=== PATIENT | male | born 1935 | race Caucasian/White ===

== ENCOUNTER 2018-03-26 11:48 | Emergency (ER) | payer OTHER ==
[2018-03-26 12:01] VITALS: BMI 20.5
--- NOTE | 2018-03-26 12:10 | PDOC ---
History of Present Illness - General Chief Complaint: Syncope/Near Syncope Stated Complaint: SYNCOPE Time Seen by Provider: 03/26/18 12:09 - History of Present Illness Initial Comments: 03/26/18 12:17 Mr. 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 Patient reports he his feeling like his normal self now however is concerned he may have had another stroke. Describes his symptoms earlier today as weakness only that resolved. The patient denies chest pain, shortness of breath, and headache. Denies fever, chills, nausea, vomit, diarrhea and constipation. Denies dysuria, frequency, urgency and hematuria. Past History - Past Medical History Allergies/Adverse Reactions: Allergies Allergy/AdvReac Type Severity Reaction Status Date / Time No Known Allergies Allergy Verified 03/26/18 11:58 Home Medications: Ambulatory Orders Aspirin [ASA -] 81 mg PO DAILY 03/26/18 Cyanocobalamin [Vitamin B12 -] 1,000 mcg PO DAILY 03/26/18 Ergocalciferol (Vitamin D2) [Ergocal] 5,000 unit PO DAILY 03/26/18 Pantoprazole Sodium 40 mg PO DAILY 03/26/18 Prednisolone 1% Ophthalmic [Pred Forte 1% -] 1 ml OU DAILY 03/26/18 COPD: No GI Disorders: Yes (gastritis) Disorders: Yes (enlarged prostate) HTN: Yes - Suicide/Smoking/Psychosocial Hx Smoking History: Never smoked Have you smoked in the past 12 months: No Information on smoking cessation initiated: No Hx Alcohol Use: No Drug/Substance Use Hx: No Review of Systems - Review of Systems Comments:: 03/26/18 12:34 GENERAL/CONSTITUTIONAL: No fever or chills. No weakness. HEAD, EYES, EARS, NOSE AND THROAT: No change in vision. No ear pain or discharge. No sore throat. CARDIOVASCULAR: No chest pain or shortness of breath RESPIRATORY: No cough, wheezing, or hemoptysis. GASTROINTESTINAL: No nausea, vomiting, diarrhea or constipation. GENITOURINARY: No dysuria, frequency, or change in urination. MUSCULOSKELETAL: No joint or muscle swelling or pain. No neck or back pain. SKIN: No rash NEUROLOGIC: +Transient weakness as described; No headache, vertigo, loss of consciousness, or change in strength/sensation. ENDOCRINE: No increased thirst. No abnormal weight change HEMATOLOGIC/LYMPHATIC: No anemia, easy bleeding, or history of blood clots. ALLERGIC/IMMUNOLOGIC: No hives or skin allergy. *Physical Exam - Vital Signs Last Vital Signs Temp Pulse Resp BP Pulse Ox 97.3 F L 63 22 H 133/65 99 03/26/18 11:58 03/26/18 11:58 03/26/18 11:58 03/26/18 11:58 03/26/18 11:58 - Physical Exam Comments: 03/26/18 12:34 GENERAL: Awake, alert, and fully oriented, in no acute distress HEAD: No signs of trauma, normocephalic, atraumatic EYES: PERRLA, EOMI, sclera anicteric, conjunctiva clear ENT: Auricles normal inspection, hearing grossly normal, nares patent, oropharynx clear without exudates. Moist mucosa NECK: Normal ROM, supple, no lymphadenopathy, JVD, or masses LUNGS: No distress, speaks full sentences, clear to auscultation bilaterally HEART: Regular rate and rhythm, normal S1 and S2, no murmurs, rubs or gallops, peripheral pulses normal and equal bilaterally. ABDOMEN: Soft, nontender, normoactive bowel sounds. No guarding, no rebound. No masses EXTREMITIES: Normal inspection, Normal range of motion, no edema. No clubbing or cyanosis. NEUROLOGICAL: Cranial nerves II through XII grossly intact. Normal speech, normal gait (for patient), no focal sensorimotor deficits SKIN: Warm, Dry, normal turgor, no rashes or lesions noted. Moderate Sedation - Procedure Monitoring Vital Signs: Procedure Monitoring Vital Signs Temperature 97.3 F L 03/26/18 11:58 Pulse Rate 63 03/26/18 11:58 Respiratory Rate 22 H 03/26/18 11:58 Blood Pressure 133/65 03/26/18 11:58 O2 Sat by Pulse Oximetry (%) 99 03/26/18 11:58 Heart Score/ECG Review - History History: Moderately suspicious - Electrocardiogram EKG: Non specific repolarization disturbance - Age Age: >/= 65 - Risk Factors Risk Factors Heart Score: Yes Hx Hypertension Based on the list above the patient has:: 1-2 risk factors - Troponin Troponin: </= normal limit - Score Heart Score - Total: 5 ED Treatment Course - LABORATORY CBC & Chemistry Diagram: 03/26/18 13:12 03/26/18 13:12 Medical Decision Making - Medical Decision Making 03/26/18 16:26 Mr. Mishra is an 83 yo male w/ pmh as described who presents for evaluation of symptoms of weakness earlier today (now resolved). Patient well appearing at presentation, EKG significant for non-specific ST changes only. No previous EKG to compare to. Patient initial workup non-contributory. Discussed with cardiology who recommend outpatient follow-up for further evaluation given repeat tropinin negative. 2nd troponin pending at this time. 03/26/18 16:54 2nd troponin negative. Discharging to home with close outpatient follow-up. Laboratory Results - last 24 hr 03/26/18 03/26/18 03/26/18 13:12 13:12 15:44 WBC 5.8 RBC 3.70 L Hgb 12.7 Hct 36.2 MCV 97.9 H MCH 34.5 H MCHC 35.2 RDW 13.9 Plt Count 154 MPV 8.0 Absolute Neuts (auto) 4.3 Neutrophils % 73.7 Lymphocytes % 13.5 Monocytes % 10.4 H Eosinophils % 1.9 Basophils % 0.5 Nucleated RBC % 0 Sodium 134 L Potassium 4.2 Chloride 103 Carbon Dioxide 25 Anion Gap 6 L BUN 18 Creatinine 0.9 Creat Clearance w eGFR > 60 Random Glucose 78 Calcium 8.3 L Total Bilirubin 1.3 H AST 21 ALT 27 Alkaline Phosphatase 83 Creatine Kinase 554 H Creatine Kinase Index 0.1 CK-MB (CK-2) 1.1 Troponin I < 0.02 0.02 Total Protein 6.9 Albumin 3.4 *DC/Admit/Observation/Transfer Diagnosis at time of Disposition: Weakness - Discharge Dispostion Disposition: HOME - Referrals Referrals: Jeffry Ramos MD [Primary Care Provider] - Richar Cardoso MD [Staff Physician] - - Patient Instructions Printed Discharge Instructions: DI for Dizziness-Nonvertigo Additional Instructions: You were evaluated today in the ED for your weakness episode. No concerning findings were found on EKG, labs, or Xray. We do not believe any emergent process is occurring at this time. We have provided cardiology information for follow-up. Please call on Wednesday for an appointment with Dr. Cardoso. Return to ER if any repeat in weakness, fever, chills, or other concerning symptoms. Fuiste evaluado hoy en el servicio de urgencias por tu episodio de debilidad. No se encontraron hallazgos en relacin con el ECG, los laboratorios o la radiografa. No creemos que est ocurriendo ningn proceso emergente en rd momento. Hemos proporcionado informacin de cardiologa para manzanares seguimiento. Por favor llame el para toya nunu con el Dr. Cardoso. Regrese a la janeen de emergencias si alguna repite en la debilidad, fiebre, escalofros u otros sntomas relacionados. Print Language: SWEDISH - Post Discharge Activity
--- NOTE | 2018-03-26 12:37 | PDOC ---
Attending Attestation - Resident Resident Name: Winston Eller - ED Attending Attestation I have performed the following: I have examined & evaluated the patient, The case was reviewed & discussed with the resident, I agree w/resident's findings & plan, Exceptions are as noted - Physicial Exam PE: GENERAL: Awake, alert, and fully oriented, in no acute distress HEAD: No signs of trauma EYES: PERRLA, EOMI, sclera anicteric, conjunctiva clear ENT: Auricles normal inspection, hearing grossly normal, nares patent, oropharynx clear without exudates. Moist mucosa NECK: Normal ROM, supple, no lymphadenopathy, JVD, or masses LUNGS: Breath sounds equal, clear to auscultation bilaterally. No wheezes, and no crackles HEART: Regular rate and rhythm, normal S1 and S2, no murmurs, rubs or gallops ABDOMEN: Soft, nontender, normoactive bowel sounds. No guarding, no rebound. No masses EXTREMITIES: Normal range of motion, no edema. No clubbing or cyanosis. No cords, erythema, or tenderness NEUROLOGICAL: Cranial nerves II through XII grossly intact. Normal speech, normal gait. Motor and sensation intact SKIN: Warm, Dry, normal turgor, no rashes or lesions noted. - Medical Decision Making Pt with near syncope at synagogue. Will obtain cardiac workup. No neuro deficits, CTH not indicated. <Jennie Kaye - Last Filed: 03/26/18 13:33> - HPI HPI: 03/26/18 13:40 The patient is an 83 year old male with no PMH of GERD, HTN, BPH, prior CVA who presents to the ER with a dizzy episode at approximately 10:30AM today. He describes the dizziness as a weakness lasting 5 minutes that resolved on its own after sitting down. Patient denies any symptoms here in the ER. Denies diaphoresis, cp, sob, FERNANDES, fever chills, N/V/D/C, or urinary symptoms. <Maria Elena Bhatt - Last Filed: 03/26/18 13:44>
[2018-03-26] MEDS ORDERED: ASPIRIN 81 MG CHEWABLE TABLETS PO ONE (12:40)
[2018-03-26 13:34] LABS: BASO % 0.5 % (0-2.0); EOS % 1.9 % (0-4.5); HEMATOCRIT 36.2 % (35.4-49); HEMOGLOBIN 12.7 GM/dL (11.7-16.9); LYMPH % 13.5 % (8-40); MCH 34.5 pg (25.7-33.7); MCHC 35.2 g/dl (32.0-35.9); MEAN CELL VOLUME 97.9 fl (80-96); MONO % 10.4 % (3.8-10.2); NEUT % 73.7 % (42.8-82.8); PLATELET COUNT 154 K/MM3 (134-434); RDW 13.9 % (11.9-15.9); WHITE BLOOD COUNT 5.8 K/mm3 (4.0-10.0)
[2018-03-26] MEDS ORDERED: ASPIRIN 81 MG CHEWABLE TABLETS ONE (13:53)
[2018-03-26 13:55] LABS: ALBUMIN 3.4 g/dl (3.4-5.0); ALK PHOS 83 U/L (45-117); ANION GAP 6 MMOL/L (8-16); BILIRUBIN,TOTAL 1.3 mg/dL (0.2-1); BLOOD UREA NITROGEN 18 mg/dL (7-18); CALCIUM 8.3 mg/dL (8.5-10.1); CHLORIDE 103 mmol/L (98-107); CO2 25 mmol/L (21-32); CREATININE 0.9 mg/dL (0.55-1.3); GLUCOSE,RANDOM 78 mg/dL (74-106); POTASSIUM 4.2 mmol/L (3.5-5.1); SGOT/AST 21 U/L (15-37); SGPT/ALT 27 U/L (13-61); SODIUM 134 mmol/L (136-145); TOT PROT 6.9 g/dl (6.4-8.2)
--- NOTE | 2018-03-26 15:29 | EKG ---
Test Reason : Blood Pressure : / mmHG Vent. Rate : 057 BPM Atrial Rate : 057 BPM P-R Int : 168 ms QRS Dur : 096 ms QT Int : 410 ms P-R-T Axes : 056 046 058 degrees QTc Int : 399 ms SINUS BRADYCARDIA NONSPECIFIC ST ABNORMALITY ABNORMAL ECG NO PREVIOUS ECGS AVAILABLE Confirmed by Richar Cardoso MD ([id number]) on 03/26/2018 3:29:01 PM Referred By: Confirmed By:Richar Cardoso MD
[2018-03-26 17:15] VITALS: BP 139/76; PULSE 65; TEMP 98.1
== END 2018-03-26 17:20 | disposition home or self-care (01) ==
LOC: JER 11:48
DX: R53.1 Weakness (principal); R42 Dizziness and giddiness; I10 Essential (primary) hypertension; K21.9 Gastro-esophageal reflux disease without esophagitis; N40.0 Benign prostatic hyperplasia without lower urinary tract symptoms; I69.844 Monoplegia of lower limb following other cerebrovascular disease affecting left non-dominant side
CPT/HCPCS: 36415; 71045-TC-FY; 80053; 82550; 82553; 84484; 85025; 93005; 93010; 99285-25

== ENCOUNTER 2018-08-02 12:07 | Inpatient (IN) | payer OTHER ==
[2018-08-02 12:30] VITALS: BMI 24.7
--- NOTE | 2018-08-02 13:16 | PDOC ---
History of Present Illness - General Stated Complaint: FALL Time Seen by Provider: 08/02/18 12:46 History Source: Patient, Spouse ( present at bedside.), Bolt Sorter Used ( Pt is Rwandan speaking only. [employer] calculus teacher utilized.), Old Records Exam Limitations: Language Barrier - History of Present Illness Initial Comments: HPI: 83 y/o male presenting to [facility] ER complaining of facial pain and bleeding after a syncopal episode. Pt felt light headed and dizzy while socializing at his club this morning. Stepped outside and fell to the ground. Struck his face. Believes he passed out for approx. 2 min. Was not able to stand up afterward. Sensation had resolved by the time of interview. Endorses feeling lightheaded and weak for the past week. Was started on Mirapex last week. Further endorses dysuria. Was diagnosed with a UTI and started on Levaquin in clinic. Takes ASA daily. PCP: Dr. Serrano Urologist: Dr. Rivera Social Hx: - EtOH: Denies - Tobacco: Denies Medical Hx: - Gastritis - Prostate Enlargement - S/p unknown prostate surgery 15 years ago Pt unable to recall names of current medications. Obtained from pharmacy. Includes Mirapex, Rimeron, Zoloft, Atenalol, Flomax, and Amitiza. Review of Systems: In addition to that documented in the HPI above, the additional ROS was obtained : Constitutional: Denies fevers or chills Head: Denies vision changes ENMT: Denies sore throat CV: Denies chest pain Resp: Denies SOB GI: Endorses nausea. Denies vomiting or diarrhea : Endorses painful urination MSK: Per HPI Skin: Denies new rashes Neuro: Denies new numbness or tingling or weakness Endocrine: Denies polyuria Heme: Denies bleeding or bruising Physical Examination: Constitutional: Elderly adult male in no acute distress or obvious discomfort. Found semi-fowlers on hospital bed. Alert and oriented x4. Answered all questions appropriately and completely. Speech was non-labored, non-pressured. Head: Normocephalic. Abrasions to overlying left methodist, zygoma, and left side of upper lip. Trace oozing blood. No raccoon eyes or Battles sign. No tenderness to maxillary or frontal sinuses. No obvious bony deformities. Eyes: Pupils 3mm and PERRL bilaterally. EOMI. No nystagmus. Sclerae white. Conjunctiva moist and not injected. Ears: Hearing grossly intact. No discharge. Nose: No nasal discharge. Throat: Oral cavity and pharynx normal. No inflammation, swelling, exudate, or lesions. No intraoral trauma. Neck: Supple, trachea is midline. No c-spine tenderness. Able to rotate neck to R and L >45 degrees without difficulty. Cardiovascular / Chest: Borderline bradycardic rate with regular rhythm. No murmur, rubs, clicks, or gallops. Peripheral pulses: radial pulses full. No anterior chest wall tenderness to palpation. No pretibial edema. Respiratory: Breathing unlabored. Equal chest rise and fall. Clear to auscultation bilaterally. No stridor, no wheezing, no rhonchi. Gastrointestinal: abdomen is soft, non-tender, non-distended. No overlying skin lesions or obvious signs of trauma. Neuro: Alert and oriented. Moving all four extremities spontaneously. No focal deficits. Cranial nerves intact. Sensation to all four extremities intact. Upper and lower extremities: proximal and distal strength 5/5. Bottom Pounder [employer] Shoes strength 5/ 5 - equal and symmetric. Plantar flexion and dorsiflexion 5/5. No nuchal rigidity. Intact heel to kinsey. Skin: Warm and dry. No further signs of trauma aside from wounds to face as described above. Psych: Affect: appropriate. Mood: normal. MDM: *Reviewed vital signs, nursing notes, and prior visit documentation (if available). 83 y/o male s/p syncopal episode in setting of week long generalized weakness. Started Levaquin and Mirapex recently. Denies symptoms on arrival. Afebrile. Vitals remarkable for bradycardia that improved without intervention. Suspect secondary to home beta case therapy. No hypotension. Physical exam as described above. Suspect likely orthostatic hypotension secondary to starting Mirapex. D/D includes but not limited to ACS, arrhythmia, hypothyroidism (low suspicion), PE (very low suspicion without respiratory complaints), CVA, or seizure. EKG revealed possible ST elevation in V2, which was present on previous EKG from Mar 2018. Interval change of flipped T-wave in aVL. Will discuss with cardiology admissions clinician. 14:14 Cased discussed in person with Dr. Dozier. Not likely to be acute RI. Will continue with current management. Awaiting troponin. Repeat EKG unchanged from initial. Repeat troponin at 1.5 hours remain below 0.02. Low suspicion for ACS. CBC unremarkable for anemia or leukocytosis. CMP unremarkable for electrolyte derangement. UA unremarkable for pyuria, nitrites, or leukocyte esterase. Result possibly obscured by current abx therapy. Will defer further management to inpatient team. Head and c-spine CTs unremarkable for acute pathology. Negative orthostatic vital signs. Will admit pt for further syncope workup. 15:10 Telephone consultation with LC Cazares. Verbally appraised of the pts HPI, ED course, and current plan of management. Will admit the pt for attending Dr. Serrano. Javier Tipton M.D., PGY1 Emergency Medicine Resident Past History - Past Medical History Allergies/Adverse Reactions: Allergies Allergy/AdvReac Type Severity Reaction Status Date / Time No Known Allergies Allergy Verified 04/26/18 09:48 Home Medications: Ambulatory Orders Aspirin [ASA -] 81 mg PO DAILY 03/26/18 Atenolol [Tenormin -] 100 mg PO DAILY 08/02/18 Lubiprostone [Amitiza] 8 mcg PO BID 08/02/18 Mirtazapine [Remeron -] 7.5 mg PO HS 08/02/18 Pramipexole Dihydrochloride [Mirapex -] 0.125 mg PO HS 08/02/18 Sertraline HCl [Zoloft] 25 mg PO DAILY 08/02/18 Tamsulosin HCl [Flomax] 0.4 mg PO DAILY 08/02/18 levoFLOXacin [Levaquin -] 250 mg PO BID 08/02/18 CVA: Yes (40 yrs ago) COPD: No GI Disorders: Yes (gastritis) Disorders: Yes (enlarged prostate) HTN: Yes - Suicide/Smoking/Psychosocial Hx Smoking History: Never smoked Have you smoked in the past 12 months: No Information on smoking cessation initiated: No Hx Alcohol Use: No Drug/Substance Use Hx: No *Physical Exam - Vital Signs Last Vital Signs Temp Pulse Resp BP Pulse Ox 98.2 F 49 L 18 120/42 L 98 08/02/18 12:28 08/02/18 12:28 08/02/18 12:28 08/02/18 12:28 08/02/18 12:28 Vital Signs - Vital Signs #1 Blood Pressure: 144/67 MAP: 92 BP Location: Right Arm Blood Pressure Position: Sitting Pulse Rate: 58 Respiratory Rate: 18 O2 Sat by Pulse Oximetry (%): 99 Oxygen Delivery Method: Room Air #2 Blood Pressure: 140/76 MAP: 97 BP Location: Left Arm Blood Pressure Position: Sitting Pulse Rate: 62 Respiratory Rate: 20 O2 Sat by Pulse Oximetry (%): 97 Oxygen Delivery Method: Room Air ED Treatment Course - LABORATORY CBC & Chemistry Diagram: 08/02/18 13:16 08/02/18 13:16 *DC/Admit/Observation/Transfer Diagnosis at time of Disposition: Syncope and collapse, Fall in elderly patient Facial abrasion Qualifiers: Encounter type: initial encounter Qualified Code(s): S00.81XA - Abrasion of other part of head, initial encounter - Discharge Dispostion Condition at time of disposition: Stable Decision to Admit order: Yes - Referrals - Patient Instructions - Post Discharge Activity
[2018-08-02] MEDS ORDERED: LACTATED RINGERS SOLUTION 1000 ML INFUS.BAG IV ONE (13:34)
[2018-08-02 13:35] LABS: BASO % 0.2 % (0-2.0); EOS % 0.8 % (0-4.5); HEMATOCRIT 36.3 % (35.4-49); HEMOGLOBIN 12.5 GM/dL (11.7-16.9); LYMPH % 11.6 % (8-40); MCH 32.9 pg (25.7-33.7); MCHC 34.6 g/dl (32.0-35.9); MEAN CELL VOLUME 95.2 fl (80-96); MEAN PLT VOLUME 6.7 fl (7.5-11.1); MONO % 4.8 % (3.8-10.2); NEUT % 82.6 % (42.8-82.8); PLATELET COUNT 336 K/MM3 (134-434); RBC 3.81 M/mm3 (4.00-5.60); RDW 13.4 % (11.9-15.9); WHITE BLOOD COUNT 9.9 K/mm3 (4.0-10.0)
[2018-08-02] MEDS ORDERED: ASPIRIN 81 MG CHEWABLE TABLETS PO ONE (13:42)
[2018-08-02 13:43] LABS: EPI CELLS 1.7 /HPF (0-5/HPF); HYALINE CASTS 37 /lpf (0-8); PH,URINE 5.5 (5.0-8.0); URINE APPEARANCE CLOUDY; URINE BACTERIA 8.6 /hpf (NEGATIVE); URINE BILIRUBIN NEGATIVE (NEGATIVE); URINE COLOR YELLOW; URINE GLUCOSE (UA) NEGATIVE (NEGATIVE); URINE KETONE TRACE (NEGATIVE); URINE LEUK ESTERASE NEGATIVE (NEGATIVE); URINE NITRITE NEGATIVE (NEGATIVE); URINE PROTEIN 1+ (NEGATIVE); URINE WBC 1 /hpf (0-5)
[2018-08-02] MEDS ORDERED: ASPIRIN 325 MG TABLET ONE (14:16)
[2018-08-02 14:27] LABS: ALBUMIN 3.2 g/dl (3.4-5.0); ALK PHOS 112 U/L (45-117); ANION GAP 6 MMOL/L (8-16); BILIRUBIN,TOTAL 0.7 mg/dL (0.2-1); BLOOD UREA NITROGEN 12.5 mg/dL (7-18); CALCIUM 8.6 mg/dL (8.5-10.1); CHLORIDE 98 mmol/L (98-107); CO2 28 mmol/L (21-32); CREATININE 0.9 mg/dL (0.55-1.3); GLUCOSE,RANDOM 96 mg/dL (74-106); POTASSIUM 4.5 mmol/L (3.5-5.1); SGOT/AST 27 U/L (15-37); SGPT/ALT 42 U/L (13-61); SODIUM 132 mmol/L (136-145); TOT PROT 7.5 g/dl (6.4-8.2)
--- NOTE | 2018-08-02 15:02 | PDOC ---
Documentation entered by Lula Mera SCRIBE, acting as scribe for Ivis Wiggins MD. Ivis Wiggins MD: This documentation has been prepared by the Samaria carroll Brenda, SCRIBE, under my direction and personally reviewed by me in its entirety. I confirm that the documentation accurately reflects all work, treatment, procedures, and medical decision making performed by me. Attending Attestation - Resident Resident Name: Javier Tipton - [facility] HPI: 08/02/18 14:28 The patient is an 83 year old male, with a significant PMH of GERD, HTN, BPH, CVA (30-40 years ago with resultant limp only (L leg weakness), CVA and prostate enlargement who presents to the emergency department with facial pain and bleeding s/p fall this morning. The patient reports being at a club, where he usually attends, and started to feel dizzy and light-headed, at which point he fell off of a chair and hit his face. The patient believes he may have syncopize for about 2 minutes, and reports feeling very weak post incident, and wasnt able to stand. The patient notes feeling lightheaded for the past week. The Patient also states seeing his PCP last week, where he was diagnosed with a UTI and was prescribed Levaquin, however he notes still having dysuria. He also states starting Mirapex last week. The patient was only anguillan-speaking. The patient denies chest pain, shortness of breath, headache and dizziness. Denies fever, chills, nausea, vomiting, diarrhea and constipation. Denies frequency, urgency and hematuria. The patient was anguillan-speaking only. Allergies: NKA Past surgical history: unknown prostate surgery done 15 years ago. Social history: No tobacco use. No alcohol use. PMH: The reports that patient was diagnosed with a stroke years ago, in [place]. Urologist:Dr. Rivera PCP: Dr. Jacey Serrano - Physicial Exam PE: 08/02/18 14:28 GENERAL: Awake, alert, and fully oriented, in no acute distress HEAD: EYES: PERRLA, EOMI, sclera anicteric, conjunctiva clear ENT: Auricles normal inspection, hearing grossly normal, nares patent, oropharynx clear without exudates. Moist mucosa NECK: Normal ROM, supple, no lymphadenopathy, JVD, or masses LUNGS: Breath sounds equal, clear to auscultation bilaterally. No wheezes, and no crackles HEART: Regular rate and rhythm, normal S1 and S2, no murmurs, rubs or gallops ABDOMEN: Soft, nontender, normoactive bowel sounds. No guarding, no rebound. No masses EXTREMITIES: Normal range of motion, no edema. No clubbing or cyanosis. No cords, erythema, or tenderness NEUROLOGICAL: Cranial nerves II through XII grossly intact. Normal speech, normal gait SKIN: + Facial abrasions on left side. Warm, Dry, normal turgor, no rashes noted. - Medical Decision Making 08/02/18 14:56 Pt presents to the ED complaining of syncope today with fall. Patient is a poor historian, but does report some prodromal dizziness. Ct head and C spine checked to rule out intracranial bleed or cervical spine fx and are negative. Denies chest complaints--EKG shows no arrythmia or evidence of acute ischemia. Troponin is negative. GIven his age and risk factors, will admit to observation for syncope. 08/02/18 14:57
[2018-08-02 15:27] LABS: URINE RBC 0.4 /hpf (0-4)
[2018-08-02 15:28] LABS: URINE CRYSTALS CALCIUM OXALATE /hpf
--- NOTE | 2018-08-02 20:01 | HP ---
Admitting History and Physical - Primary Care Physician PCP: Fer Serrano - Admission Chief Complaint: Syncopal Episode History of Present Illness: Patient is an 83 y/o male with past medical history of Gastritis, Prostate Enlargement. Patient presented to ER after having syncopal episode today. Patient states prior to syncopal episode he was having intermittent L sided headaches with visual disturbances. Today while in his program he felt lightheaded with nausea and then experienced a syncopal episode. Patient did hit his head. Patient takes Aspirin daily. History Source: Patient Limitations to Obtaining History: No Limitations - Past Medical History Cardiovascular: Yes: HTN Renal/: Yes: BPH - Smoking History Smoking history: Never smoked Have you smoked in the past 12 months: No - Alcohol/Substance Use Hx Alcohol Use: No - Social History Usual Living Arrangement: Yes: With Spouse ADL: Independent History of Recent Travel: No Home Medications - Allergies Allergies/Adverse Reactions: Allergies Allergy/AdvReac Type Severity Reaction Status Date / Time No Known Allergies Allergy Verified 04/26/18 09:48 - Home Medications Home Medications: Ambulatory Orders Aspirin [ASA -] 81 mg PO DAILY 03/26/18 Lubiprostone [Amitiza] 8 mcg PO BID 08/02/18 Mirtazapine [Remeron -] 7.5 mg PO HS 08/02/18 Sertraline HCl [Zoloft] 25 mg PO DAILY 08/02/18 Tamsulosin HCl [Flomax] 0.4 mg PO DAILY 08/02/18 Amlodipine Besylate [Norvasc -] 5 mg PO DAILY #30 tablet 08/06/18 Review of Systems - Review of Systems Constitutional: reports: Weakness Eyes: reports: Blurred Vision HENT: reports: No Symptoms Neck: reports: No Symptoms Cardiovascular: reports: No Symptoms Respiratory: reports: No Symptoms Gastrointestinal: reports: No Symptoms Genitourinary: reports: Dysuria Breasts: reports: No Symptoms Reported Musculoskeletal: reports: No Symptoms Integumentary: reports: No Symptoms Neurological: reports: Syncope Endocrine: reports: No Symptoms Hematology/Lymphatic: reports: No Symptoms Psychiatric: reports: No Symptoms Physical Examination Vital Signs: Vital Signs Temperature 98.1 F 08/02/18 17:16 Pulse Rate 51 L 08/02/18 17:16 Respiratory Rate 16 08/02/18 17:16 Blood Pressure 149/57 L 08/02/18 17:16 O2 Sat by Pulse Oximetry (%) 99 08/02/18 17:16 Constitutional: Yes: No Distress, Calm Eyes: Yes: Conjunctiva Clear HENT: Yes: Normocephalic Neck: Yes: Supple Cardiovascular: Yes: Bradycardia Respiratory: Yes: Regular, CTA Bilaterally Gastrointestinal: Yes: Normal Bowel Sounds, Soft Musculoskeletal: Yes: Muscle Weakness Extremities: Yes: WNL Edema: No Integumentary: Yes: Other (abrasion to L forehead, nasal bridge, L side of face) Neurological: Yes: Alert, Oriented Psychiatric: Yes: Alert, Oriented Labs: CBC, BMP 08/02/18 13:16 08/02/18 13:16 Imaging - Results Cat Scan: Report Reviewed Problem List - Problems (1) Facial abrasion Code(s): S00.81XA - ABRASION OF OTHER PART OF HEAD, INITIAL ENCOUNTER Qualifiers: Encounter type: initial encounter Qualified Code(s): S00.81XA - Abrasion of other part of head, initial encounter (2) Fall in elderly patient Assessment/Plan: -fall precaution -PT Code(s): R29.6 - REPEATED FALLS (3) Syncope and collapse Assessment/Plan: -Neurology and Cardiology consult -fall precaution -neuro checks -tele monitor -Head CT scan shows no evidence of acute intracranial hemorrhage, edema, midline shift, mass effect, or skull fracture, moderate supratentorial chronic white matter microangiopathic ischemic changes, gliosis -Carotid US Code(s): R55 - SYNCOPE AND COLLAPSE (4) Weakness Assessment/Plan: -fall precaution -PT Code(s): R53.1 - WEAKNESS (5) Bradycardia Assessment/Plan: -Cardiology consult -tele monitor -hold Atenolol if HR <60bpm Code(s): R00.1 - BRADYCARDIA, UNSPECIFIED (6) UTI (urinary tract infection) Assessment/Plan: -Levaquin -UC pending Code(s): N39.0 - URINARY TRACT INFECTION, SITE NOT SPECIFIED Assessment/Plan see problem list dvt ppx
[2018-08-02] MEDS ORDERED: PATIENT'S OWN MEDICATION (NON-FORMULARY) (Lubiprostone [Amitiza] 8 MCG) PO SCH (22:00)
[2018-08-03] MEDS: MIRTAZAPINE 15 MG TABLET (FP) PO SCH ×2 (00:04→21:33)
[2018-08-03] MEDS: PRAMIPEXOLE DIHYDROCHLORIDE 0.125 MG TABLET PO SCH ×2 (00:04→21:33)
[2018-08-03 06:11] LABS: BASO % 0.6 % (0-2.0); HEMATOCRIT 35.6 % (35.4-49); HEMOGLOBIN 12.5 GM/dL (11.7-16.9); LYMPH % 33.3 % (8-40); MCH 32.8 pg (25.7-33.7); MCHC 35.1 g/dl (32.0-35.9); MEAN CELL VOLUME 93.5 fl (80-96); MEAN PLT VOLUME 7.2 fl (7.5-11.1); MONO % 8.3 % (3.8-10.2); NEUT % 55.8 % (42.8-82.8); PLATELET COUNT 318 K/MM3 (134-434); RBC 3.81 M/mm3 (4.00-5.60); RDW 13.5 % (11.9-15.9); WHITE BLOOD COUNT 4.9 K/mm3 (4.0-10.0)
[2018-08-03 06:49] LABS: ALBUMIN 2.9 g/dl (3.4-5.0); BILIRUBIN,TOTAL 0.7 mg/dL (0.2-1); BLOOD UREA NITROGEN 9.9 mg/dL (7-18); CALCIUM 8.5 mg/dL (8.5-10.1); CREATININE 0.7 mg/dL (0.55-1.3); MAGNESIUM 2.4 mg/dL (1.8-2.4); PHOSPHOROUS 3.1 mg/dL (2.5-4.9); POTASSIUM 3.9 mmol/L (3.5-5.1); TOT PROT 6.9 g/dl (6.4-8.2)
--- NOTE | 2018-08-03 08:17 | EKG ---
Test Reason : Blood Pressure : / mmHG Vent. Rate : 053 BPM Atrial Rate : 053 BPM P-R Int : 180 ms QRS Dur : 098 ms QT Int : 422 ms P-R-T Axes : 042 058 073 degrees QTc Int : 395 ms POOR DATA QUALITY, INTERPRETATION MAY BE ADVERSELY AFFECTED SINUS BRADYCARDIA MINIMAL VOLTAGE CRITERIA FOR LVH, MAY BE NORMAL VARIANT BORDERLINE ECG WHEN COMPARED WITH ECG OF 02-AUG-2018 12:27, NO SIGNIFICANT CHANGE WAS FOUND Confirmed by JOSEF HOLM MD ([id number]) on 08/03/2018 8:17:27 AM Referred By: Confirmed By:JOSEF HOLM MD
[2018-08-03] MEDS ORDERED: PNEUMOC 13-VAL CONJ-DIP CRM/PF 0.5 ML DISP.SYRIN IM ONE (10:00)
[2018-08-03] MEDS ORDERED: ATENOLOL 50 MG TABLET (FP) PO SCH ×2 (10:00)
[2018-08-03] MEDS: ASPIRIN 81 MG CHEWABLE TABLETS PO SCH (11:10)
[2018-08-03] MEDS: SERTRALINE HCL 25 MG TABLET (FP) PO SCH (11:10)
[2018-08-03] MEDS: TAMSULOSIN HCL 0.4 MG CAP PO SCH (11:10)
--- NOTE | 2018-08-03 11:19 | EKG ---
Test Reason : Blood Pressure : / mmHG Vent. Rate : 049 BPM Atrial Rate : 049 BPM P-R Int : 178 ms QRS Dur : 092 ms QT Int : 432 ms P-R-T Axes : 071 063 078 degrees QTc Int : 390 ms SINUS BRADYCARDIA MINIMAL VOLTAGE CRITERIA FOR LVH, MAY BE NORMAL VARIANT MARKED ST ABNORMALITY, POSSIBLE ANTEROSEPTAL SUBENDOCARDIAL INJURY Confirmed by ALTA DAUGHERTY, JOSEF ([id number]) on 08/03/2018 11:19:19 AM Referred By: Confirmed By:JOSEF HOLM MD
--- NOTE | 2018-08-03 13:03 | CON.CARD ---
Consult Consult Specialty:: cardiology Referred by:: Zach Reason for Consultation:: Syncope - History of Present Illness Chief Complaint: Syncope History of Present Illness: The patient is an 83-year-old man, with a history of hypertension, stroke, BPH, now admitted with syncope. The patient claims that he was sitting in the chair when he suddenly became dizzy and fell off the chair. He woke up a few seconds later. He has no recollections of the event. Next The patient stated that he has been experiencing dizziness and lightheadedness for the past 2 weeks. The symptoms are new to him. The patient denies chest pains and shortness of breath while walking. No palpitations. He is currently comfortable and symptom free. - History Source History Provided By: Patient, Medical Record Limitations to Obtaining History: No Limitations - Past Medical History Cardio/Vascular: Yes: HTN Renal/: Yes: BPH - Past Surgical History Past Surgical History: Yes: None - Alcohol/Substance Use Hx Alcohol Use: No - Smoking History Smoking history: Never smoked Have you smoked in the past 12 months: No - Social History ADL: Independent History of Recent Travel: No Home Medications - Allergies Allergies/Adverse Reactions: Allergies Allergy/AdvReac Type Severity Reaction Status Date / Time No Known Allergies Allergy Verified 04/26/18 09:48 - Home Medications Home Medications: Ambulatory Orders Aspirin [ASA -] 81 mg PO DAILY 03/26/18 Atenolol [Tenormin -] 100 mg PO DAILY 08/02/18 Lubiprostone [Amitiza] 8 mcg PO BID 08/02/18 Mirtazapine [Remeron -] 7.5 mg PO HS 08/02/18 Pramipexole Dihydrochloride [Mirapex -] 0.125 mg PO HS 08/02/18 Sertraline HCl [Zoloft] 25 mg PO DAILY 08/02/18 Tamsulosin HCl [Flomax] 0.4 mg PO DAILY 08/02/18 levoFLOXacin [Levaquin -] 250 mg PO BID 08/02/18 Review of Systems - Review of Systems Constitutional: reports: No Symptoms Eyes: reports: No Symptoms HENT: reports: No Symptoms Neck: reports: No Symptoms Cardiovascular: reports: No Symptoms Respiratory: reports: No Symptoms Gastrointestinal: reports: No Symptoms Genitourinary: reports: No Symptoms Breasts: reports: No Symptoms Reported Musculoskeletal: reports: No Symptoms Integumentary: reports: No Symptoms Neurological: reports: Syncope Endocrine: reports: No Symptoms Hematology/Lymphatic: reports: No Symptoms Psychiatric: reports: No Symptoms Vital Signs: Vital Signs Temperature 97.7 F 08/03/18 06:00 Pulse Rate 45 L 08/03/18 06:00 Respiratory Rate 16 08/03/18 06:00 Blood Pressure 113/61 08/03/18 06:00 O2 Sat by Pulse Oximetry (%) 99 08/02/18 22:20 Constitutional: Yes: Well Nourished, No Distress, Calm Eyes: Yes: WNL, Conjunctiva Clear, EOM Intact HENT: Yes: WNL, Atraumatic, Normocephalic Neck: Yes: WNL, Supple, Trachea Midline Respiratory: Yes: WNL, Regular, CTA Bilaterally Gastrointestinal: Yes: WNL, Normal Bowel Sounds, Soft Renal/: Yes: WNL Cardiovascular: Yes: WNL, Regular Rate and Rhythm JVD: No Carotid Bruit: No PMI: Non-Displaced Heart Sounds: Yes: S1, S2 Murmur: Yes: Systolic Murmur, Grade 2 Extremities: Yes: WNL Edema: No Peripheral Pulses WNL: Yes Integumentary: Yes: WNL Neurological: Yes: WNL, Alert, Oriented ...Motor Strength: WNL Psychiatric: Yes: WNL - Other Data Labs, Other Data: CBC, BMP 08/03/18 05:05 08/03/18 05:05 Troponin, BNP 08/02/18 08/02/18 08/03/18 13:16 15:30 05:05 Troponin I < 0.02 < 0.02 0.02 Troponin, BNP 08/02/18 08/02/18 08/03/18 13:16 15:30 05:05 Troponin I < 0.02 < 0.02 0.02 Assessment/Plan The patient is an 83-year-old man, with a history of hypertension, stroke, BPH, now admitted with syncope. The patient claims that he was sitting in the chair when he suddenly became dizzy and fell off the chair. He woke up a few seconds later. He has no recollections of the event. Next The patient stated that he has been experiencing dizziness and lightheadedness for the past 2 weeks. The symptoms are new to him. The patient denies chest pains and shortness of breath while walking. No palpitations. He is currently comfortable and symptom free. There is no evidence of ischemia nor acute coronary syndrome. No CHF. The patient is in sinus bradycardia. No clinically important arrhythmias documented at this point. Would stop atenolol. Start Norvasc 5 mg daily. Would monitor for further 24 hours. Please arrange for an echocardiogram. The patient is stable. No need for further cardiac workup at this point.
--- NOTE | 2018-08-03 14:09 | PN ---
Progress Note, Physician Chief Complaint: Syncope Bradycardia History of Present Illness: Previous notes and events reviewed awake and alert NAD denies dizziness, chest pain, or SOB - Current Medication List Current Medications: Active Medications Amlodipine Besylate (Norvasc -) 5 mg PO DAILY [facility] Aspirin (Asa -) 81 mg PO DAILY [facility] Last Admin: 08/03/18 11:10 Dose: 81 mg Levofloxacin (Levaquin -) 250 mg PO DAILY@0600 [facility] Last Admin: 08/03/18 08:10 Dose: 250 mg Mirtazapine (Remeron -) 7.5 mg PO [facility] Last Admin: 08/03/18 00:04 Dose: 7.5 mg Non-Formulary Medication (Lubiprostone [Amitiza]) 8 mcg PO BID [facility] Pramipexole Dihydrochloride (Mirapex -) 0.125 mg PO [facility] Last Admin: 08/03/18 00:04 Dose: 0.125 mg Sertraline HCl (Zoloft -) 25 mg PO DAILY [facility] Last Admin: 08/03/18 11:10 Dose: 25 mg Tamsulosin HCl (Flomax -) 0.4 mg PO DAILY@0830 [facility] Last Admin: 08/03/18 11:10 Dose: 0.4 mg - Objective Vital Signs: Vital Signs Temperature 97.7 F 08/03/18 06:00 Pulse Rate 45 L 08/03/18 06:00 Respiratory Rate 16 08/03/18 06:00 Blood Pressure 113/61 08/03/18 06:00 O2 Sat by Pulse Oximetry (%) 99 08/02/18 22:20 Constitutional: Yes: No Distress, Calm Eyes: Yes: Conjunctiva Clear HENT: Yes: Normocephalic Cardiovascular: Yes: Bradycardia Respiratory: Yes: Regular, Diminished Gastrointestinal: Yes: Normal Bowel Sounds, Soft Musculoskeletal: Yes: Muscle Weakness Extremities: Yes: WNL Edema: No Neurological: Yes: Alert, Oriented Psychiatric: Yes: Alert, Oriented Labs: CBC, BMP 08/03/18 05:05 08/03/18 05:05 Microbiology 08/02/18 13:16 Urine - Urine Clean Catch Urine Culture - Final NO GROWTH OBTAINED - ....Imaging X-ray: Report Reviewed Problem List - Problems (1) Facial abrasion Code(s): S00.81XA - ABRASION OF OTHER PART OF HEAD, INITIAL ENCOUNTER Qualifiers: Encounter type: initial encounter Qualified Code(s): S00.81XA - Abrasion of other part of head, initial encounter (2) Fall in elderly patient Assessment/Plan: -fall precaution -PT Code(s): R29.6 - REPEATED FALLS (3) Syncope and collapse Assessment/Plan: -Neurology and Cardiology consult -fall precaution -neuro checks -tele monitor -Head CT scan shows no evidence of acute intracranial hemorrhage, edema, midline shift, mass effect, or skull fracture, moderate supratentorial chronic white matter microangiopathic ischemic changes, gliosis -Carotid US shows small plaques at the common carotid bifurcation and bulb, bilaterally without evidence of hemodynamically significant stenosis, moderate sized plaques at the origin right external carotid artery -Echocardiogram Code(s): R55 - SYNCOPE AND COLLAPSE (4) Weakness Assessment/Plan: -fall precaution -PT Code(s): R53.1 - WEAKNESS (5) Bradycardia Assessment/Plan: -Cardiology consult -tele monitor Code(s): R00.1 - BRADYCARDIA, UNSPECIFIED (6) UTI (urinary tract infection) Assessment/Plan: -Levaquin -UC negative Code(s): N39.0 - URINARY TRACT INFECTION, SITE NOT SPECIFIED (7) HTN (hypertension) Assessment/Plan: -Atenolol discontinued -start Norvasc 5mg daily Code(s): I10 - ESSENTIAL (PRIMARY) HYPERTENSION Assessment/Plan see progress note dvt ppx
--- NOTE | 2018-08-03 15:55 | ECHO ---
Name: MANDIE, JERILYN Exam:Adult Echocardiogram Study Date: 08/03/2018 02:54 PM Age: 83 yrs Reason For Study: SYNCOPE Height: 62 in Weight: 129 lb BSA: 1.6 m2 MMode/2D Measurements & Calculations IVSd: 0.93 cm Ao root diam: 2.9 cm LVIDd: 4.2 cm LA dimension: 2.7 cm LVIDs: 2.6 cm LVPWd: 0.80 cm EDV(Teich): 79.2 ml LVOT diam: 1.9 cm ESV(Teich): 24.3 ml RV S Bijan: 12.4 cm/sec Doppler Measurements & Calculations MV E max bijan: 58.7 cm/sec Ao V2 max: 144.5 cm/sec MV A max bijan: 49.5 cm/sec Ao max P.3 mmHg MV E/A: 1.2 Ao V2 mean: 101.0 cm/sec MV dec time: 0.28 sec Ao mean P.6 mmHg Ao V2 VTI: 34.5 cm MARGARET(I,D): 2.3 cm2 MARGARET(V,D): 2.4 cm2 LV V1 max P.4 mmHg SV(LVOT): 78.4 ml LV V1 mean P.7 mmHg LV V1 max: 126.1 cm/sec LV V1 mean: 91.9 cm/sec LV V1 VTI: 28.5 cm TR max bijan: 259.0 cm/sec Med Peak E' Bijan: 6.9 cm/sec TR max P.8 mmHg Med E/e': 8.6 Lat Peak E' Bijan: 10.8 cm/sec Lat E/e': 5.5 Procedure A two-dimensional transthoracic echocardiogram with color flow and Doppler was performed. The study w as technically difficult with many images being suboptimal in quality. Left Ventricle The left ventricular size, thickness and function are normal. The left ventricle is not well visualiz ed. The left ventricular ejection fraction is normal. Left Ventricular Filling pattern is normal for age. Reg ional wall motion abnormalities cannot be excluded due to limited visualization. Right Ventricle The right ventricle is grossly normal size. The right ventricle is not well visualized. Atria Normal left and right atrial size and function. Mitral Valve There is mild mitral valve thickening. The mitral valve is not well visualized. There is no mitral va lve stenosis. There is trace to mild mitral regurgitation. Tricuspid Valve There is mild tricuspid valve thickening. There is no tricuspid stenosis. There is mild tricuspid regurgitation. Right ventricular systolic pressure is normal. Aortic Valve The aortic valve is not well visualized. No hemodynamically significant valvular aortic stenosis. Mil d to moderate aortic regurgitation. Pulmonic Valve The pulmonic valve is not well visualized. Great Vessels The aortic root is normal size. Pericardium/Pleura There is no pericardial effusion. Interpretation Summary The left ventricular size, thickness and function are normal Mild to moderate aortic regurgitation. There is mild tricuspid regurgitation. Right ventricular systolic pressure is normal. The left ventricular ejection fraction is normal. Regional wall motion abnormalities cannot be excluded due to limited visualization. The study was technically difficult with many images being suboptimal in quality. The left ventricle is not well visualized. The right ventricle is not well visualized. Left Ventricular Filling pattern is normal for age. There is trace to mild mitral regurgitation. MD Levi Vaac 08/03/2018 03:55 PM
[2018-08-04 06:07] LABS: HEMATOCRIT 36.2 % (35.4-49); HEMOGLOBIN 12.5 GM/dL (11.7-16.9); MCH 32.5 pg (25.7-33.7); MCHC 34.6 g/dl (32.0-35.9); MEAN CELL VOLUME 93.8 fl (80-96); MEAN PLT VOLUME 7.3 fl (7.5-11.1); PLATELET COUNT 302 K/MM3 (134-434); RBC 3.86 M/mm3 (4.00-5.60); RDW 13.6 % (11.9-15.9); WHITE BLOOD COUNT 4.5 K/mm3 (4.0-10.0)
[2018-08-04 06:31] LABS: ALBUMIN 2.8 g/dl (3.4-5.0); BILIRUBIN,TOTAL 0.6 mg/dL (0.2-1); BLOOD UREA NITROGEN 17.6 mg/dL (7-18); CALCIUM 8.4 mg/dL (8.5-10.1); CREATININE 0.8 mg/dL (0.55-1.3); POTASSIUM 4.5 mmol/L (3.5-5.1); TOT PROT 6.5 g/dl (6.4-8.2)
[2018-08-04] MEDS: TAMSULOSIN HCL 0.4 MG CAP PO SCH (08:41)
[2018-08-04] MEDS: ASPIRIN 81 MG CHEWABLE TABLETS PO SCH (09:16)
[2018-08-04] MEDS ORDERED: PT OWN MED DRAWER 7, Y5N ONE (09:16)
[2018-08-04] MEDS: amLODIPine BESYLATE 5 MG TABLET (FP) PO SCH (09:17)
[2018-08-04] MEDS: SERTRALINE HCL 25 MG TABLET (FP) PO SCH (09:17)
--- NOTE | 2018-08-04 10:22 | CONSULT ---
Consult - text type - Consultation Consultation Note: NEUROLOGY CONSULT GREATLY APPRECIATED: Events reviewed and discussed with staff. Cardiology consult read and appreciated. This 83 yo RH Pashto speaking man attends day program 4H M-F and has [employer]/day. Has been ambulating with cane for past 6 months. PMHx GERD, HTN, BPH, CVA 20 years ago diagnosed in [place]. Meds: ASA 81, Atenolol, amitiza, mirtazapine, sertraline 25 mg, tamsulosin. Rx for UTI with levofloxacin and also started on pramipexole 0.125 HS x 1 week. Reports new "mild" head pains at vertex without associated symptoms for past "month or so." While at day program, awoke with similar headache and felt brief period of " dizziness" and fell forward on his head, sustaining abrasion to orthodoxy. He believes he had LOC for 2 minutes, then awoke and was able to recall his surroundings. Head CT (reviewed): Mod atrophy with diffuse chronic ischemic changes R > L. CT of C Spine: multilevel Spondylosis without traumatic changes or sig. canal stenosis. Carotid duplex: Small plaques at bifurcation of carotids. Mod plaques at REC, but no significant hemodynamic changes. EKG NSR with periods of bradycardia in 40s-50s Na 132-> 137; TSH 1.71; Urine WBC= 1 UC = no growth VIDHYA: [id number]. Supine 156/63. Sitting 149/52. No bruit. Neck supple. Neg SLR. Excoriation to L orthodoxy. Faint distal pulses. NEURO: Awake, alert, responsive. Sitting in chair. [facility]. Does not recall name. July,. CANDELARIO. YONY-> ONDOM. 2/3 recall @ 3 min. + glabella, snout. CNII-CNXII: EOM's full. Full bliss. No facial. Motor: No drift. Strength normal. Reflexes normal, except AJ's absent. Toes silent. Coordination: Mild L FTN dystaxia. Sensation: Reduced vibration in toes. Romberg +/- Gait: Sl flexed. Can walk on heels and toes. Impression: Syncope with head trauma - no CT changes or clinical sequellae. 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 associated with new Pramipexole Rx Peripheral neuropathy Suggest: Orthostatic BP's Agree with D/C of atenolol per cardio Would also D/C pramipexole can also cause orthostaic hypotension as well as headaches. Continue Holter/Telemetry monitoring Check ESR, CRP, (R/o Temporal arteritis as a cause of the new headache), RPR and B12 in eval of OMS Pt eval with walker for gait safety 911 emergency services dispatcher for home safety check Neuro f/u as outpatient for EEG, EMG's of the legs, RX for OMS ( once bradycardia has resolved). Thank you very much, Andrea Morales MD
--- NOTE | 2018-08-04 13:55 | PN ---
Progress Note, Physician Chief Complaint: Status post fall History of Present Illness: The patient is an 83-year-old man, with a history of hypertension, stroke, BPH, now admitted with syncope. The patient claims that he was sitting in the chair when he suddenly became dizzy and fell off the chair. He woke up a few seconds later. He has no recollections of the event. Next The patient stated that he has been experiencing dizziness and lightheadedness for the past 2 weeks. The symptoms are new to him. The patient denies chest pains and shortness of breath while walking. No palpitations. He is currently comfortable and symptom free. There is no evidence of ischemia nor acute coronary syndrome. No CHF. The patient is in sinus bradycardia. No clinically important arrhythmias documented at this point. - Current Medication List Current Medications: Active Medications Amlodipine Besylate (Norvasc -) 5 mg PO DAILY [facility] Last Admin: 08/04/18 09:17 Dose: 5 mg Aspirin (Asa -) 81 mg PO DAILY [facility] Last Admin: 08/04/18 09:16 Dose: 81 mg Levofloxacin (Levaquin -) 250 mg PO DAILY@0600 [facility] Last Admin: 08/04/18 06:31 Dose: 250 mg Mirtazapine (Remeron -) 7.5 mg PO [facility] Last Admin: 08/03/18 21:33 Dose: 7.5 mg Non-Formulary Medication (Lubiprostone [Amitiza]) 8 mcg PO BID [facility] Pramipexole Dihydrochloride (Mirapex -) 0.125 mg PO [facility] Last Admin: 08/03/18 21:33 Dose: 0.125 mg Sertraline HCl (Zoloft -) 25 mg PO DAILY [facility] Last Admin: 08/04/18 09:17 Dose: 25 mg Tamsulosin HCl (Flomax -) 0.4 mg PO DAILY@0830 [facility] Last Admin: 08/04/18 08:41 Dose: 0.4 mg - Objective Vital Signs: Vital Signs Temperature 97.5 F L 08/04/18 08:00 Pulse Rate 69 08/04/18 12:38 Respiratory Rate 18 08/04/18 12:38 Blood Pressure 123/63 08/04/18 12:38 O2 Sat by Pulse Oximetry (%) 97 08/04/18 08:00 Constitutional: Yes: Well Nourished, No Distress, Calm Eyes: Yes: WNL, Conjunctiva Clear, EOM Intact HENT: Yes: WNL, Atraumatic, Normocephalic Neck: Yes: WNL, Supple, Trachea Midline Cardiovascular: Yes: WNL, Regular Rate and Rhythm, S1, S2 Respiratory: Yes: WNL, Regular, CTA Bilaterally Gastrointestinal: Yes: WNL, Normal Bowel Sounds, Soft ...Rectal Exam: Yes: Deferred Genitourinary: Yes: WNL Breast(s): Yes: WNL Musculoskeletal: Yes: WNL Extremities: Yes: WNL Edema: No Peripheral Pulses: Left Radial: 1+, Right Radial: 1+, Left Doralis Pedis: 1+, Right Dorsalis Pedis: 1+, Left Femoral: 1+, Right Femoral: 1+ Neurological: Yes: WNL, Alert, Oriented ...Motor Strength: WNL Psychiatric: Yes: WNL, Alert, Oriented Labs: CBC, BMP 08/04/18 05:05 08/04/18 05:05 Assessment/Plan The patient is an 83-year-old man, with a history of hypertension, stroke, BPH, now admitted with syncope. The patient claims that he was sitting in the chair when he suddenly became dizzy and fell off the chair. He woke up a few seconds later. He has no recollections of the event. Next The patient stated that he has been experiencing dizziness and lightheadedness for the past 2 weeks. The symptoms are new to him. The patient denies chest pains and shortness of breath while walking. No palpitations. He is currently comfortable and symptom free. There is no evidence of ischemia nor acute coronary syndrome. No CHF. The patient is in sinus bradycardia. No clinically important arrhythmias documented at this point. The echocardiogram showed that both ventricles are functioning normally. There was moderate aortic valve regurgitation. No other clinically important findings noted on that study. Next The patient is maintaining sinus rhythm. Periods of mild sinus bradycardia. No pauses. No clinically important arrhythmias documented at this point. Keep off beta and calcium blockers. Continue amlodipine as currently. There is no need for further cardiac workup at this point. Please arrange for an outpatient appointment with within one week of discharge. The continuous hospital monitor should be considered in the outpatient setting. The patient is stable. Please do not hesitate to call us PRN.
--- NOTE | 2018-08-04 18:28 | PN ---
Progress Note, Physician Chief Complaint: Syncope Bradycardia History of Present Illness: Previous notes and events reviewed awake and alert NAD sts feeling better denies dizziness, chest pain, or SOB - Current Medication List Current Medications: Active Medications Amlodipine Besylate (Norvasc -) 5 mg PO DAILY [facility] Last Admin: 08/04/18 09:17 Dose: 5 mg Aspirin (Asa -) 81 mg PO DAILY [facility] Last Admin: 08/04/18 09:16 Dose: 81 mg Levofloxacin (Levaquin -) 250 mg PO DAILY@0600 [facility] Last Admin: 08/04/18 06:31 Dose: 250 mg Mirtazapine (Remeron -) 7.5 mg PO HS [facility] Last Admin: 08/03/18 21:33 Dose: 7.5 mg Non-Formulary Medication (Lubiprostone [Amitiza]) 8 mcg PO BID [facility] Sertraline HCl (Zoloft -) 25 mg PO DAILY [facility] Last Admin: 08/04/18 09:17 Dose: 25 mg Tamsulosin HCl (Flomax -) 0.4 mg PO DAILY@0830 [facility] Last Admin: 08/04/18 08:41 Dose: 0.4 mg - Objective Vital Signs: Vital Signs Temperature 97.5 F L 08/04/18 18:08 Pulse Rate 75 08/04/18 18:08 Respiratory Rate 18 08/04/18 18:08 Blood Pressure 136/68 08/04/18 18:08 O2 Sat by Pulse Oximetry (%) 97 08/04/18 08:00 Constitutional: Yes: No Distress, Calm Eyes: Yes: Conjunctiva Clear HENT: Yes: Atraumatic Cardiovascular: Yes: Bradycardia Respiratory: Yes: Regular, CTA Bilaterally Gastrointestinal: Yes: Normal Bowel Sounds, Soft Musculoskeletal: Yes: Muscle Weakness Extremities: Yes: WNL Edema: No Neurological: Yes: Alert, Oriented Psychiatric: Yes: Alert, Oriented Labs: CBC, BMP 08/04/18 05:05 08/04/18 05:05 Microbiology 08/02/18 13:16 Urine - Urine Clean Catch Urine Culture - Final NO GROWTH OBTAINED - ....Imaging Ultrasound: Report Reviewed Problem List - Problems (1) Facial abrasion Code(s): S00.81XA - ABRASION OF OTHER PART OF HEAD, INITIAL ENCOUNTER Qualifiers: Encounter type: initial encounter Qualified Code(s): S00.81XA - Abrasion of other part of head, initial encounter (2) Fall in elderly patient Assessment/Plan: -fall precaution -PT Code(s): R29.6 - REPEATED FALLS (3) Syncope and collapse Assessment/Plan: -Neurology and Cardiology consult -fall precaution -neuro checks -tele monitor -Head CT scan shows no evidence of acute intracranial hemorrhage, edema, midline shift, mass effect, or skull fracture, moderate supratentorial chronic white matter microangiopathic ischemic changes, gliosis -Carotid US shows small plaques at the common carotid bifurcation and bulb, bilaterally without evidence of hemodynamically significant stenosis, moderate sized plaques at the origin right external carotid artery -Echocardiogram EF is normal -orthostatic BP Code(s): R55 - SYNCOPE AND COLLAPSE (4) Weakness Assessment/Plan: -fall precaution -PT Code(s): R53.1 - WEAKNESS (5) Bradycardia Assessment/Plan: -Cardiology consult -tele monitor Code(s): R00.1 - BRADYCARDIA, UNSPECIFIED (6) UTI (urinary tract infection) Assessment/Plan: -Levaquin -UC negative Code(s): N39.0 - URINARY TRACT INFECTION, SITE NOT SPECIFIED (7) HTN (hypertension) Code(s): I10 - ESSENTIAL (PRIMARY) HYPERTENSION Assessment/Plan see progress note dvt ppx
[2018-08-04] MEDS: MIRTAZAPINE 15 MG TABLET (FP) PO SCH (21:38)
[2018-08-05 06:30] LABS: HEMATOCRIT 36.7 % (35.4-49); HEMOGLOBIN 12.6 GM/dL (11.7-16.9); MCH 32.6 pg (25.7-33.7); MCHC 34.4 g/dl (32.0-35.9); MEAN CELL VOLUME 94.9 fl (80-96); MEAN PLT VOLUME 7.1 fl (7.5-11.1); PLATELET COUNT 298 K/MM3 (134-434); RBC 3.87 M/mm3 (4.00-5.60); RDW 13.5 % (11.9-15.9); WHITE BLOOD COUNT 4.4 K/mm3 (4.0-10.0)
[2018-08-05 07:16] LABS: ALBUMIN 2.9 g/dl (3.4-5.0); BILIRUBIN,TOTAL 0.6 mg/dL (0.2-1); BLOOD UREA NITROGEN 19.1 mg/dL (7-18); CALCIUM 8.6 mg/dL (8.5-10.1); CREATININE 0.8 mg/dL (0.55-1.3); POTASSIUM 4.5 mmol/L (3.5-5.1); TOT PROT 6.7 g/dl (6.4-8.2)
--- NOTE | 2018-08-05 09:25 | PN ---
Progress Note, Physician - Current Medication List Current Medications: Active Medications Amlodipine Besylate (Norvasc -) 5 mg PO DAILY [facility] Last Admin: 08/04/18 09:17 Dose: 5 mg Aspirin (Asa -) 81 mg PO DAILY [facility] Last Admin: 08/04/18 09:16 Dose: 81 mg Mirtazapine (Remeron -) 7.5 mg PO HS [facility] Last Admin: 08/04/18 21:38 Dose: 7.5 mg Non-Formulary Medication (Lubiprostone [Amitiza]) 8 mcg PO BID [facility] Sertraline HCl (Zoloft -) 25 mg PO DAILY [facility] Last Admin: 08/04/18 09:17 Dose: 25 mg Tamsulosin HCl (Flomax -) 0.4 mg PO DAILY@0830 [facility] Last Admin: 08/04/18 08:41 Dose: 0.4 mg - Objective Vital Signs: Vital Signs Temperature 97.6 F 08/05/18 04:00 Pulse Rate 49 L 08/05/18 04:00 Respiratory Rate 15 08/05/18 04:00 Blood Pressure 100/61 08/05/18 04:00 O2 Sat by Pulse Oximetry (%) 97 08/05/18 00:51 Eyes: Yes: Other (VISUALY IMPAIRED) Cardiovascular: Yes: S1, S2 Respiratory: Yes: Regular, CTA Bilaterally Gastrointestinal: Yes: Normal Bowel Sounds, Soft Neurological: Yes: Alert, Oriented Labs: CBC, BMP 08/05/18 05:30 08/05/18 05:35 Assessment/Plan - Problems (1) Facial abrasion Code(s): S00.81XA - ABRASION OF OTHER PART OF HEAD, INITIAL ENCOUNTER Qualifiers: Encounter type: initial encounter Qualified Code(s): S00.81XA - Abrasion of other part of head, initial encounter (2) Fall in elderly patient Assessment/Plan: -fall precaution -PT NOTED Code(s): R29.6 - REPEATED FALLS (3) Syncope and collapse Assessment/Plan: -Neurology and Cardiology consult noted -fall precaution -neuro checks -tele monitor -Head CT scan shows no evidence of acute intracranial hemorrhage, edema, midline shift, mass effect, or skull fracture, moderate supratentorial chronic white matter microangiopathic ischemic changes, gliosis -Carotid US shows small plaques at the common carotid bifurcation and bulb, bilaterally without evidence of hemodynamically significant stenosis, moderate sized plaques at the origin right external carotid artery -Echocardiogram EF is normal -orthostatic BP Code(s): R55 - SYNCOPE AND COLLAPSE (4) Weakness Assessment/Plan: -fall precaution -PT Code(s): R53.1 - WEAKNESS (5) Bradycardia Assessment/Plan: -Cardiology consult -tele monitor -Ekg Code(s): R00.1 - BRADYCARDIA, UNSPECIFIED (6) UTI (urinary tract infection) Assessment/Plan: -off Abx -UC negative Code(s): N39.0 - URINARY TRACT INFECTION, SITE NOT SPECIFIED (7) HTN (hypertension) Code(s): I10 - ESSENTIAL (PRIMARY) HYPERTENSION
[2018-08-05] MEDS: ASPIRIN 81 MG CHEWABLE TABLETS PO SCH (09:48)
[2018-08-05] MEDS: amLODIPine BESYLATE 5 MG TABLET (FP) PO SCH (09:48)
[2018-08-05] MEDS: TAMSULOSIN HCL 0.4 MG CAP PO SCH (09:48)
[2018-08-05] MEDS: SERTRALINE HCL 25 MG TABLET (FP) PO SCH (09:48)
--- NOTE | 2018-08-05 13:29 | EKG ---
Test Reason : Blood Pressure : / mmHG Vent. Rate : 060 BPM Atrial Rate : 060 BPM P-R Int : 160 ms QRS Dur : 098 ms QT Int : 402 ms P-R-T Axes : 069 066 078 degrees QTc Int : 402 ms NORMAL SINUS RHYTHM LEFT VENTRICULAR HYPERTROPHY WHEN COMPARED WITH ECG OF 02-AUG-2018 14:16, NO SIGNIFICANT CHANGE WAS FOUND Confirmed by ROSY PLAZA MD ([id number]) on 08/05/2018 1:29:14 PM Referred By: DANNY HARPER Confirmed By:ROSY PLAZA MD
[2018-08-05] MEDS: MIRTAZAPINE 15 MG TABLET (FP) PO SCH (21:24)
[2018-08-06 05:34] VITALS: TEMP 97.4
--- NOTE | 2018-08-06 09:20 | PN ---
Progress Note, Physician Chief Complaint: Syncope Bradycardia History of Present Illness: Previous notes and events reviewed awake and alert NAD sts feeling better denies dizziness, chest pain, or SOB HR and BP improving - Current Medication List Current Medications: Active Medications Amlodipine Besylate (Norvasc -) 5 mg PO DAILY [facility] Last Admin: 08/05/18 09:48 Dose: 5 mg Aspirin (Asa -) 81 mg PO DAILY [facility] Last Admin: 08/05/18 09:48 Dose: 81 mg Mirtazapine (Remeron -) 7.5 mg PO HS [facility] Last Admin: 08/05/18 21:24 Dose: 7.5 mg Non-Formulary Medication (Lubiprostone [Amitiza]) 8 mcg PO BID [facility] Sertraline HCl (Zoloft -) 25 mg PO DAILY [facility] Last Admin: 08/05/18 09:48 Dose: 25 mg Tamsulosin HCl (Flomax -) 0.4 mg PO DAILY@0830 [facility] Last Admin: 08/05/18 09:48 Dose: 0.4 mg - Objective Vital Signs: Vital Signs Temperature 97.4 F L 08/06/18 04:00 Pulse Rate 55 L 08/06/18 04:00 Respiratory Rate 15 08/06/18 04:00 Blood Pressure 91/58 L 08/06/18 04:00 O2 Sat by Pulse Oximetry (%) 97 08/05/18 20:51 Constitutional: Yes: No Distress, Calm Eyes: Yes: Conjunctiva Clear HENT: Yes: Atraumatic Cardiovascular: Yes: Regular Rate and Rhythm Respiratory: Yes: Regular, CTA Bilaterally Gastrointestinal: Yes: Normal Bowel Sounds, Soft Musculoskeletal: Yes: Muscle Weakness Extremities: Yes: WNL Edema: No Neurological: Yes: Alert, Oriented Psychiatric: Yes: Alert, Oriented Labs: CBC, BMP 08/05/18 05:30 08/05/18 05:35 Problem List - Problems (1) Facial abrasion Code(s): S00.81XA - ABRASION OF OTHER PART OF HEAD, INITIAL ENCOUNTER Qualifiers: Encounter type: initial encounter Qualified Code(s): S00.81XA - Abrasion of other part of head, initial encounter (2) Fall in elderly patient Assessment/Plan: -fall precaution -PT Code(s): R29.6 - REPEATED FALLS (3) Syncope and collapse Assessment/Plan: -Neurology and Cardiology consult -fall precaution -neuro checks -tele monitor -Head CT scan shows no evidence of acute intracranial hemorrhage, edema, midline shift, mass effect, or skull fracture, moderate supratentorial chronic white matter microangiopathic ischemic changes, gliosis -Carotid US shows small plaques at the common carotid bifurcation and bulb, bilaterally without evidence of hemodynamically significant stenosis, moderate sized plaques at the origin right external carotid artery -Echocardiogram EF is normal -orthostatic BP Code(s): R55 - SYNCOPE AND COLLAPSE (4) Weakness Assessment/Plan: -fall precaution -PT Code(s): R53.1 - WEAKNESS (5) Bradycardia Assessment/Plan: -Cardiology consult -tele monitor Code(s): R00.1 - BRADYCARDIA, UNSPECIFIED (6) UTI (urinary tract infection) Assessment/Plan: -UC negative Code(s): N39.0 - URINARY TRACT INFECTION, SITE NOT SPECIFIED (7) HTN (hypertension) Assessment/Plan: -Atenolol discontinued -start Norvasc 5mg daily Code(s): I10 - ESSENTIAL (PRIMARY) HYPERTENSION Assessment/Plan see progress note dvt ppx
[2018-08-06] MEDS: SERTRALINE HCL 25 MG TABLET (FP) PO SCH (09:29)
[2018-08-06] MEDS: ASPIRIN 81 MG CHEWABLE TABLETS PO SCH (09:29)
[2018-08-06] MEDS: amLODIPine BESYLATE 5 MG TABLET (FP) PO SCH (09:29)
[2018-08-06] MEDS: TAMSULOSIN HCL 0.4 MG CAP PO SCH (09:29)
--- NOTE | 2018-08-06 10:35 | DS ---
Physical Examination Vital Signs: Vital Signs Temperature 97.4 F L 08/06/18 04:00 Pulse Rate 68 08/06/18 08:00 Respiratory Rate 16 08/06/18 08:00 Blood Pressure 130/66 08/06/18 08:00 O2 Sat by Pulse Oximetry (%) 97 08/05/18 20:51 Findings/Remarks: Patient is an 83 y/o male with past medical history of Gastritis, Prostate Enlargement. Patient presented to ER after having syncopal episode today. Patient states prior to syncopal episode he was having intermittent L sided headaches with visual disturbances. Today while in his program he felt lightheaded with nausea and then experienced a syncopal episode. Patient did hit his head. Patient takes Aspirin daily. Constitutional: Yes: No Distress, Calm Eyes: Yes: Conjunctiva Clear HENT: Yes: Atraumatic Cardiovascular: Yes: Regular Rate and Rhythm Respiratory: Yes: Regular, CTA Bilaterally Gastrointestinal: Yes: Normal Bowel Sounds, Soft Musculoskeletal: Yes: Muscle Weakness Extremities: Yes: WNL Edema: No Neurological: Yes: Alert, Oriented Psychiatric: Yes: Alert, Oriented Labs: CBC, BMP 08/05/18 05:30 08/05/18 05:35 Microbiology 08/02/18 13:16 Urine - Urine Clean Catch Urine Culture - Final NO GROWTH OBTAINED Discharge Summary Reason For Visit: FALL IN ELDERLY PATIENT/SYNCOPE AND COLLAPSE Current Active Problems Bradycardia (Acute) Facial abrasion (Acute) Fall in elderly patient (Acute) HTN (hypertension) (Acute) Syncope and collapse (Acute) UTI (urinary tract infection) (Acute) Hospital Course: see progress notes Laboratory Tests 08/02/18 08/02/18 08/02/18 13:16 13:16 13:16 WBC 9.9 RBC 3.81 L Hgb 12.5 Hct 36.3 MCV 95.2 MCH 32.9 MCHC 34.6 RDW 13.4 Plt Count 336 D MPV 6.7 L D Absolute Neuts (auto) 8.2 H Neutrophils % 82.6 Lymphocytes % 11.6 Monocytes % 4.8 Eosinophils % 0.8 Basophils % 0.2 Nucleated RBC % 0 ESR Sodium 132 L Potassium 4.5 Chloride 98 Carbon Dioxide 28 Anion Gap 6 L BUN 12.5 Creatinine 0.9 Est GFR (CKD-EPI)AfAm 91.86 Est GFR (CKD-EPI)NonAf 79.26 POC Glucometer Random Glucose 96 Hemoglobin A1c % Calcium 8.6 Phosphorus Magnesium Total Bilirubin 0.7 AST 27 ALT 42 Alkaline Phosphatase 112 Creatine Kinase 260 Creatine Kinase Index 0.3 CK-MB (CK-2) < 1.0 Troponin I < 0.02 C-Reactive Protein Total Protein 7.5 Albumin 3.2 L Triglycerides Cholesterol Total LDL Cholesterol HDL Cholesterol Vitamin B12 TSH Urine Color Yellow Urine Appearance Cloudy Urine pH 5.5 Ur Specific [place] 1.022 Urine Protein 1+ H Urine Glucose (UA) Negative Urine Ketones Trace H Urine Blood Negative Urine Nitrite Negative Urine Bilirubin Negative Urine Urobilinogen 1.0 Ur Leukocyte Esterase Negative Urine WBC (Auto) 1 Urine RBC (Auto) 0.4 Urine Casts (Auto) 37 U Pathogenic Cast Auto Mucus threads seen U Epithel Cells (Auto) 1.7 Urine Crystals (Auto) Calcium oxalate Urine Bacteria (Auto) 8.6 RPR Titer 08/02/18 08/02/18 08/02/18 13:16 15:30 18:09 WBC RBC Hgb Hct MCV MCH MCHC RDW Plt Count MPV Absolute Neuts (auto) Neutrophils % Lymphocytes % Monocytes % Eosinophils % Basophils % Nucleated RBC % ESR Sodium Potassium Chloride Carbon Dioxide Anion Gap BUN Creatinine Est GFR (CKD-EPI)AfAm Est GFR (CKD-EPI)NonAf POC Glucometer 105 Random Glucose Hemoglobin A1c % Calcium Phosphorus Magnesium Total Bilirubin AST ALT Alkaline Phosphatase Creatine Kinase Creatine Kinase Index CK-MB (CK-2) Troponin I < 0.02 C-Reactive Protein Total Protein Albumin Triglycerides Cholesterol Total LDL Cholesterol HDL Cholesterol Vitamin B12 TSH 1.71 Urine Color Urine Appearance Urine pH Ur Specific [place] Urine Protein Urine Glucose (UA) Urine Ketones Urine Blood Urine Nitrite Urine Bilirubin Urine Urobilinogen Ur Leukocyte Esterase Urine WBC (Auto) Urine RBC (Auto) Urine Casts (Auto) U Pathogenic Cast Auto U Epithel Cells (Auto) Urine Crystals (Auto) Urine Bacteria (Auto) RPR Titer 08/03/18 08/03/18 08/03/18 05:05 05:05 05:05 WBC 4.9 RBC 3.81 L Hgb 12.5 Hct 35.6 MCV 93.5 MCH 32.8 MCHC 35.1 RDW 13.5 Plt Count 318 MPV 7.2 L Absolute Neuts (auto) 2.7 Neutrophils % 55.8 D Lymphocytes % 33.3 D Monocytes % 8.3 Eosinophils % 2.0 D Basophils % 0.6 Nucleated RBC % 0 ESR Sodium 137 Potassium 3.9 Chloride 104 Carbon Dioxide 27 Anion Gap 6 L BUN 9.9 Creatinine 0.7 Est GFR (CKD-EPI)AfAm 101.86 Est GFR (CKD-EPI)NonAf 87.88 POC Glucometer Random Glucose 109 H Hemoglobin A1c % 5.7 Calcium 8.5 Phosphorus 3.1 Magnesium 2.4 Total Bilirubin 0.7 AST 25 ALT 39 Alkaline Phosphatase 101 Creatine Kinase 282 Creatine Kinase Index 0.3 CK-MB (CK-2) 1.1 Troponin I 0.02 C-Reactive Protein Total Protein 6.9 Albumin 2.9 L Triglycerides 80 Cholesterol 125 Total LDL Cholesterol 72 HDL Cholesterol 49 Vitamin B12 TSH 1.25 D Urine Color Urine Appearance Urine pH Ur Specific [place] Urine Protein Urine Glucose (UA) Urine Ketones Urine Blood Urine Nitrite Urine Bilirubin Urine Urobilinogen Ur Leukocyte Esterase Urine WBC (Auto) Urine RBC (Auto) Urine Casts (Auto) U Pathogenic Cast Auto U Epithel Cells (Auto) Urine Crystals (Auto) Urine Bacteria (Auto) RPR Titer 08/04/18 08/04/18 08/05/18 05:05 05:05 05:30 WBC 4.5 RBC 3.86 L Hgb 12.5 Hct 36.2 MCV 93.8 MCH 32.5 MCHC 34.6 RDW 13.6 Plt Count 302 MPV 7.3 L Absolute Neuts (auto) Neutrophils % Lymphocytes % Monocytes % Eosinophils % Basophils % Nucleated RBC % ESR Sodium 137 Potassium 4.5 Chloride 105 Carbon Dioxide 27 Anion Gap 5 L BUN 17.6 Creatinine 0.8 Est GFR (CKD-EPI)AfAm 96.42 Est GFR (CKD-EPI)NonAf 83.19 POC Glucometer Random Glucose 92 Hemoglobin A1c % Calcium 8.4 L Phosphorus Magnesium Total Bilirubin 0.6 AST 23 ALT 41 Alkaline Phosphatase 123 H Creatine Kinase Creatine Kinase Index CK-MB (CK-2) Troponin I C-Reactive Protein 0.6 H Total Protein 6.5 Albumin 2.8 L Triglycerides Cholesterol Total LDL Cholesterol HDL Cholesterol Vitamin B12 TSH Urine Color Urine Appearance Urine pH Ur Specific [place] Urine Protein Urine Glucose (UA) Urine Ketones Urine Blood Urine Nitrite Urine Bilirubin Urine Urobilinogen Ur Leukocyte Esterase Urine WBC (Auto) Urine RBC (Auto) Urine Casts (Auto) U Pathogenic Cast Auto U Epithel Cells (Auto) Urine Crystals (Auto) Urine Bacteria (Auto) RPR Titer 08/05/18 08/05/18 08/05/18 05:30 05:35 05:35 WBC 4.4 RBC 3.87 L Hgb 12.6 Hct 36.7 MCV 94.9 MCH 32.6 MCHC 34.4 RDW 13.5 Plt Count 298 MPV 7.1 L Absolute Neuts (auto) Neutrophils % Lymphocytes % Monocytes % Eosinophils % Basophils % Nucleated RBC % ESR Sodium 139 Potassium 4.5 Chloride 106 Carbon Dioxide 27 Anion Gap 7 L BUN 19.1 H Creatinine 0.8 Est GFR (CKD-EPI)AfAm 96.42 Est GFR (CKD-EPI)NonAf 83.19 POC Glucometer Random Glucose 90 Hemoglobin A1c % Calcium 8.6 Phosphorus Magnesium Total Bilirubin 0.6 AST 19 ALT 39 Alkaline Phosphatase 119 H Creatine Kinase Creatine Kinase Index CK-MB (CK-2) Troponin I C-Reactive Protein Total Protein 6.7 Albumin 2.9 L Triglycerides Cholesterol Total LDL Cholesterol HDL Cholesterol Vitamin B12 732 TSH Urine Color Urine Appearance Urine pH Ur Specific [place] Urine Protein Urine Glucose (UA) Urine Ketones Urine Blood Urine Nitrite Urine Bilirubin Urine Urobilinogen Ur Leukocyte Esterase Urine WBC (Auto) Urine RBC (Auto) Urine Casts (Auto) U Pathogenic Cast Auto U Epithel Cells (Auto) Urine Crystals (Auto) Urine Bacteria (Auto) RPR Titer Nonreactive 08/05/18 05:55 WBC RBC Hgb Hct MCV MCH MCHC RDW Plt Count MPV Absolute Neuts (auto) Neutrophils % Lymphocytes % Monocytes % Eosinophils % Basophils % Nucleated RBC % ESR 43 H Sodium Potassium Chloride Carbon Dioxide Anion Gap BUN Creatinine Est GFR (CKD-EPI)AfAm Est GFR (CKD-EPI)NonAf POC Glucometer Random Glucose Hemoglobin A1c % Calcium Phosphorus Magnesium Total Bilirubin AST ALT Alkaline Phosphatase Creatine Kinase Creatine Kinase Index CK-MB (CK-2) Troponin I C-Reactive Protein Total Protein Albumin Triglycerides Cholesterol Total LDL Cholesterol HDL Cholesterol Vitamin B12 TSH Urine Color Urine Appearance Urine pH Ur Specific [place] Urine Protein Urine Glucose (UA) Urine Ketones Urine Blood Urine Nitrite Urine Bilirubin Urine Urobilinogen Ur Leukocyte Esterase Urine WBC (Auto) Urine RBC (Auto) Urine Casts (Auto) U Pathogenic Cast Auto U Epithel Cells (Auto) Urine Crystals (Auto) Urine Bacteria (Auto) RPR Titer Active Medications Generic Name Dose Route Start Last Admin Trade Name Freq PRN Reason Stop Dose Admin Amlodipine Besylate 5 mg 08/04/18 10:00 08/06/18 09:29 Norvasc - PO 5 mg DAILY [facility] Administration Aspirin 81 mg 08/03/18 10:00 08/06/18 09:29 Asa - PO 81 mg DAILY [facility] Administration Mirtazapine 7.5 mg 08/02/18 22:00 08/05/18 21:24 Remeron - PO 7.[address] [facility] Administration Non-Formulary Medication 8 mcg 08/02/18 22:00 Lubiprostone [Amitiza] PO BID [facility] Sertraline HCl 25 mg 08/03/18 10:00 08/06/18 09:29 Zoloft - PO 25 mg DAILY [facility] Administration Tamsulosin HCl 0.4 mg 08/03/18 08:30 08/06/18 09:29 Flomax - PO 0.4 mg DAILY@0830 [facility] Administration Microbiology 08/02/18 13:16 Urine - Urine Clean Catch Urine Culture - Final NO GROWTH OBTAINED Condition: Stable - Instructions Diet, Activity, Other Instructions: patient to follow up with PCP 48 hrs after discharge Follow up with Dr López [employer] 1 week after discharge follow up with Dr Morales Neurologist after discharge continue with medication as prescirbed if develop dizziness, repeated falls, respiratory distress, chest pain return to ER [facility] for PT placed Referrals: Andrea Morales MD [Staff Physician] - Asael López MD [Staff Physician] - Disposition: [facility]ARE - Home Medications Comprehensive Discharge Medication List: Ambulatory Orders Aspirin [ASA -] 81 mg PO DAILY 03/26/18 Lubiprostone [Amitiza] 8 mcg PO BID 08/02/18 Mirtazapine [Remeron -] 7.5 mg PO HS 08/02/18 Sertraline HCl [Zoloft] 25 mg PO DAILY 08/02/18 Tamsulosin HCl [Flomax] 0.4 mg PO DAILY 08/02/18 Amlodipine Besylate [Norvasc -] 5 mg PO DAILY #30 tablet 08/06/18
[2018-08-06 13:14] VITALS: BP 95/57; PULSE 72
== END 2018-08-06 14:00 | disposition home health service (06) | DRG 312 ==
LOC: SUPCPDRO 12:07 → JER 12:07 → JERBED 15:15 → OBSVTOIN 15:35 → J2W 23:26
PROVIDERS: ADMIT Family Medicine; ATTEND Family Medicine
DX: R55 Syncope and collapse (principal); N39.0 Urinary tract infection, site not specified; K21.9 Gastro-esophageal reflux disease without esophagitis; I10 Essential (primary) hypertension; N40.0 Benign prostatic hyperplasia without lower urinary tract symptoms; Z86.73 Personal history of transient ischemic attack (TIA), and cerebral infarction without residual deficits; S00.81XA Abrasion of other part of head, initial encounter; W19.XXXA Unspecified fall, initial encounter; Y93.89 Activity, other specified; Y92.89 Other specified places as the place of occurrence of the external cause; Y99.8 Other external cause status; K29.60 Other gastritis without bleeding; R29.6 Repeated falls; R00.1 Bradycardia, unspecified; G62.9 Polyneuropathy, unspecified; R51 Headache
CPT/HCPCS: 36415; 70450-TC; 71045-TC-FY; 72125-TC; 80053; 80061; 81003; 82550; 82553; 82607; 82962; 83036; 83721; 83735; 84100; 84436; 84443; 84484; 85025; 85027; 85651; 86140; 86593; 87086; 93005; 93010; 93306-TC; 93880-TC; 97116-GP; 97161-GP; 99283-25; G0378

== ENCOUNTER 2021-01-01 12:39 | Observation (INO) | payer OTHER ==
[2021-01-01 12:53] VITALS: BMI 24.0
[2021-01-01 14:08] LABS: BASO % 0.6 % (0-2.0); EOS % 0.8 % (0-4.5); HEMATOCRIT 37.1 % (35.4-49); HEMOGLOBIN 12.6 GM/dL (11.7-16.9); LYMPH % 14.4 % (8-40); MCH 32.7 pg (25.7-33.7); MCHC 34.1 g/dl (32.0-35.9); MEAN CELL VOLUME 95.9 fl (80-96); MEAN PLT VOLUME 8.1 fl (7.5-11.1); MONO % 5.1 % (3.8-10.2); NEUT % 79.1 % (42.8-82.8); PLATELET COUNT 195 10^3/uL (134-434); RBC 3.86 M/mm3 (4.00-5.60); RDW 13.8 % (11.9-15.9); WHITE BLOOD COUNT 7.4 K/mm3 (4.0-10.0)
[2021-01-01 14:20] LABS: INR 1.09 (0.83-1.09); PROTHROMBIN TIME (PATIENT) 12.2 SEC (9.7-13.0)
[2021-01-01 14:22] LABS: ACTIVATED PTT 34.3 SECONDS (25.2-36.5)
[2021-01-01 14:24] LABS: CHLORIDE 104 mmol/L (98-107); SODIUM 137 mmol/L (136-145)
[2021-01-01 14:26] LABS: CALCIUM 8.7 mg/dL (8.5-10.1)
[2021-01-01 14:27] LABS: ALBUMIN 3.4 g/dl (3.4-5.0); ANION GAP 5 MMOL/L (8-16); CO2 28 mmol/L (21-32); GLUCOSE,RANDOM 136 mg/dL (74-106)
[2021-01-01 14:30] LABS: CHOLESTEROL 163 mg/dL (50-200); CREATININE 1.1 mg/dL (0.55-1.3); SGOT/AST 15 U/L (15-37); SGPT/ALT 24 U/L (13-61); TRIGLYCERIDES 95 mg/dL (0-150)
[2021-01-01 14:31] LABS: BILIRUBIN,TOTAL 0.8 mg/dL (0.2-1); TOT PROT 7.4 g/dl (6.4-8.2)
[2021-01-01 14:32] LABS: HDL CHOLESTEROL 54 mg/dL (40-60)
[2021-01-01 14:33] LABS: ALK PHOS 93 U/L (45-117)
[2021-01-01 14:34] LABS: LDL CHOLESTEROL (ONLY SJRH) 88 mg/dL (5-100)
[2021-01-01] MEDS ORDERED: ASPIRIN/DIPYRIDAMOLE 25 MG/200 MG CAPSULE PO ONE (15:23)
[2021-01-01] MEDS ORDERED: ATORVASTATIN CA 80 MG TABLET (FP) PO ONE (15:24)
[2021-01-01] MEDS ORDERED: ASPIRIN/DIPYRIDAMOLE 25 MG/200 MG CAPSULE ONE (15:39)
[2021-01-01] MEDS ORDERED: ATORVASTATIN CA 80 MG TABLET (FP) ONE (15:39)
[2021-01-01 15:48] LABS: PH,URINE 6.5 (5.0-8.0); URINE APPEARANCE CLEAR; URINE BILIRUBIN NEGATIVE (NEGATIVE); URINE COLOR YELLOW; URINE GLUCOSE (UA) NEGATIVE (NEGATIVE); URINE KETONE TRACE (NEGATIVE); URINE LEUK ESTERASE NEGATIVE (NEGATIVE); URINE NITRITE NEGATIVE (NEGATIVE); URINE PROTEIN TRACE (NEGATIVE)
[2021-01-01] MEDS ORDERED: ACETAMINOPHEN 325 MG TABLET (FP) PO PRN (17:05)
[2021-01-01 20:12] LABS: CHOLESTEROL 152 mg/dL (50-200); TRIGLYCERIDES 101 mg/dL (0-150)
[2021-01-01 20:15] LABS: HDL CHOLESTEROL 50 mg/dL (40-60)
[2021-01-01 20:40] LABS: LDL CHOLESTEROL (ONLY SJRH) 87 mg/dL (5-100)
[2021-01-01] MEDS: metoPROLOL SUCCINATE 25 MG TAB.SR.24H (FP) PO SCH (21:49)
[2021-01-01] MEDS: HEPARIN NA (PORCINE) 5,000 UNITS/ML 1ML VIAL SQ SCH (21:50)
[2021-01-01] MEDS: ASPIRIN/DIPYRIDAMOLE 25 MG/200 MG CAPSULE PO SCH (21:50)
[2021-01-02 07:18] LABS: BASO % 0.3 % (0-2.0); EOS % 0.2 % (0-4.5); HEMATOCRIT 36.9 % (35.4-49); HEMOGLOBIN 12.5 GM/dL (11.7-16.9); LYMPH % 12.7 % (8-40); MCH 32.2 pg (25.7-33.7); MCHC 33.8 g/dl (32.0-35.9); MEAN CELL VOLUME 95.4 fl (80-96); MEAN PLT VOLUME 8.3 fl (7.5-11.1); MONO % 3.3 % (3.8-10.2); NEUT % 83.5 % (42.8-82.8); PLATELET COUNT 215 10^3/uL (134-434); RBC 3.87 M/mm3 (4.00-5.60); RDW 13.8 % (11.9-15.9); WHITE BLOOD COUNT 8.8 K/mm3 (4.0-10.0)
[2021-01-02 07:39] LABS: ALBUMIN 3.4 g/dl (3.4-5.0); BLOOD UREA NITROGEN 14.3 mg/dL (7-18); CALCIUM 9.1 mg/dL (8.5-10.1); MAGNESIUM 2.5 mg/dL (1.8-2.4)
[2021-01-02 07:43] LABS: CREATININE 0.8 mg/dL (0.55-1.3)
[2021-01-02 07:44] LABS: BILIRUBIN,TOTAL 1.2 mg/dL (0.2-1); TOT PROT 7.2 g/dl (6.4-8.2)
[2021-01-02] MEDS ORDERED: PT OWN MED DRAWER 7, Y5N ONE (09:23)
[2021-01-02] MEDS: TAMSULOSIN HCL 0.4 MG CAP PO SCH (10:52)
[2021-01-02] MEDS: POLYETHYLENE GLYCOL (HEALTHYLAX) 3350 17 GM PACKET PO SCH (10:52)
[2021-01-02] MEDS: PANTOPRAZOLE 20 MG TABLET PO SCH (10:52)
[2021-01-02] MEDS: ASPIRIN/DIPYRIDAMOLE 25 MG/200 MG CAPSULE PO SCH ×2 (10:52→21:53)
[2021-01-02] MEDS: metoPROLOL SUCCINATE 25 MG TAB.SR.24H (FP) PO SCH (10:52)
[2021-01-02] MEDS: HEPARIN NA (PORCINE) 5,000 UNITS/ML 1ML VIAL SQ SCH ×2 (10:52→21:53)
[2021-01-02] MEDS: ATORVASTATIN CA 40 MG TABLET (FP) PO SCH (21:53)
[2021-01-03 06:56] LABS: BASO % 0.6 % (0-2.0); EOS % 0.9 % (0-4.5); HEMATOCRIT 35.2 % (35.4-49); HEMOGLOBIN 12.5 GM/dL (11.7-16.9); MCH 33.4 pg (25.7-33.7); MCHC 35.5 g/dl (32.0-35.9); MEAN CELL VOLUME 94.1 fl (80-96); MEAN PLT VOLUME 8.2 fl (7.5-11.1); MONO % 4.6 % (3.8-10.2); NEUT % 60.9 % (42.8-82.8); PLATELET COUNT 190 10^3/uL (134-434); RBC 3.74 M/mm3 (4.00-5.60); RDW 13.8 % (11.9-15.9); WHITE BLOOD COUNT 7.2 K/mm3 (4.0-10.0)
[2021-01-03 07:28] LABS: CALCIUM 8.5 mg/dL (8.5-10.1)
[2021-01-03 07:29] LABS: ALBUMIN 3.3 g/dl (3.4-5.0); BLOOD UREA NITROGEN 14.1 mg/dL (7-18); MAGNESIUM 2.2 mg/dL (1.8-2.4)
[2021-01-03 07:32] LABS: CREATININE 0.8 mg/dL (0.55-1.3)
[2021-01-03 07:33] LABS: BILIRUBIN,TOTAL 1.4 mg/dL (0.2-1); TOT PROT 6.9 g/dl (6.4-8.2)
[2021-01-03] MEDS ORDERED: PT OWN MED DRAWER 7, Y5N ONE ×2 (09:27→20:25)
[2021-01-03] MEDS: POLYETHYLENE GLYCOL (HEALTHYLAX) 3350 17 GM PACKET PO SCH (09:47)
[2021-01-03] MEDS: TAMSULOSIN HCL 0.4 MG CAP PO SCH (09:47)
[2021-01-03] MEDS: PANTOPRAZOLE 20 MG TABLET PO SCH (09:47)
[2021-01-03] MEDS: metoPROLOL SUCCINATE 25 MG TAB.SR.24H (FP) PO SCH (09:47)
[2021-01-03] MEDS: ASPIRIN/DIPYRIDAMOLE 25 MG/200 MG CAPSULE PO SCH ×2 (09:47→20:28)
[2021-01-03] MEDS: HEPARIN NA (PORCINE) 5,000 UNITS/ML 1ML VIAL SQ SCH ×2 (09:47→20:28)
[2021-01-03] MEDS: ATORVASTATIN CA 40 MG TABLET (FP) PO SCH (20:28)
[2021-01-03 21:54] VITALS: BP 115/55; PULSE 53; TEMP 98
== END 2021-01-03 21:57 | disposition home or self-care (01) ==
LOC: JER 12:39 → JERBED 14:49 → UNDOADMOB 14:49 → INTOOBSV 14:49 → JERBED 18:48 → J4W 18:48
PROVIDERS: ADMIT Family Medicine; ATTEND Family Medicine
PROC: 3E023GC Introduction of Other Therapeutic Substance into Muscle, Percutaneous Approach (ICD-10-PCS; principal; 2021-01-02)
DX: R42 Dizziness and giddiness (principal); R00.1 Bradycardia, unspecified; K29.70 Gastritis, unspecified, without bleeding; F03.90 Unspecified dementia, unspecified severity, without behavioral disturbance, psychotic disturbance, mood disturbance, and anxiety; I10 Essential (primary) hypertension; Z86.73 Personal history of transient ischemic attack (TIA), and cerebral infarction without residual deficits; N40.0 Benign prostatic hyperplasia without lower urinary tract symptoms; Z29.9 Encounter for prophylactic measures, unspecified
CPT/HCPCS: 36415; 70450-TC; 70551-TC; 71045-TC-FY; 80053; 80061; 81003; 82550; 82607; 82962; 83036; 83735; 84443; 84484; 85025; 85610; 85730; 86850; 86900; 86901; 93005; 93010; 93306-TC; 93880-TC; 96372; 97116-GP; 97161-GP; 99285-25; C9803; G0378; J1644; U0003; U0005